=== PATIENT | female | born 1985 | race Caucasian/White ===

== ENCOUNTER → 2020-04-03 | Outpatient (CLI) | payer OTHER, SELFPAY ==
--- NOTE | 2020-04-03 15:10 | NASAL_PTH ---
PATIENT: ELLY JUNG LOC: [facility] U#:[id number] AGE/SX: 34/F ROOM: RE04/03/[address]: Dr. 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 Negative for malignancy. See comment. SJ:tone 04/05/20 COMMENT Clinical correlation and appropriate follow up are necessary. MICROSCOPIC DESCRIPTION Slides are reviewed. GROSS DESCRIPTION Received in fixative is one container labeled with the patient's name and designated intranasal neoplasm. The specimen consists of a fragment of kahn-brown soft tissue measuring 0.5 x 0.3 x 0.2 cm. The entire specimen is submitted in one cassette. / MARYANNE:tone 04/04/20 TC:5 CPT: 96350
== END | disposition home or self-care (01) ==
LOC: LABSPEC 15:54
PROVIDERS: Referring Provider Otolaryngology; Visit Provider Otolaryngology
DX: D49.1 Neoplasm of unspecified behavior of respiratory system (principal)
CPT/HCPCS: 88305